=== PATIENT | female | born 1970 | race Caucasian/White ===

== ENCOUNTER → 2024-02-13 16:07 | Outpatient (CLI) | payer OTHER, SELFPAY ==
--- NOTE | ~2024-02-13 | XR_ITS ---
XR chest 2V Ordering provider: DOCTOR UNKNOWN History: 53 years Female with . COUGH X 2 MONTHS, WHEEZING . Comparison: None. FINDINGS: MEDIASTINUM: The cardiac silhouette is not enlarged. LUNGS: No infiltrates, effusions or pneumothorax. OTHER: No free air under the diaphragm. IMPRESSION: No acute cardiopulmonary pathology. Reviewed, dictated and finalized at location A.
== END ==
DX: R05.3 Chronic cough (principal)
CPT/HCPCS: 71046

== ENCOUNTER 2024-07-11 15:32 | Emergency (ER) | payer OTHER, SELFPAY ==
[2024-07-11 15:42] VITALS: BP 134/94; PULSE 65; RESP 19; TEMP 36.9; O2SAT 97
[2024-07-11 15:53] VITALS: BP 134/94; PULSE 65; RESP 19; TEMP 36.9; O2SAT 97
[2024-07-11] MEDS: TETANUS,DIPHTHERIA,AC PERTUSSIS ADULT (0.5 ML) BOOSTRIX IM (16:00)
--- NOTE | 2024-07-11 16:13 | ED.ANIMALBIT ---
HPI - Animal Bite General Chief Complaint: Animal Bite Stated Complaint: Cat Scratch left Thumb Time Seen by Provider: 07/11/24 15:55 Source: patient Mode of arrival: ambulatory Limitations: no limitations History of Present Illness HPI narrative: 53 yo F presents with c/o cat scartch to L hand. Pt states cats nail punctured into her skin. bleeding controlled. Injury happened this AM. 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 Swelling and redness worse this afternoon. [place] that pt should be seen for abx. ROM and NV intact. All systems reviewed and negative except as noted above. Related Data Home Medications Medication Instructions Recorded Confirmed fluoxetine 40 mg capsule 40 mg PO DAILY 07/11/24 07/11/24 levothyroxine 112 mcg tablet 112 mcg PO DAILY 07/11/24 07/11/24 rosuvastatin 5 mg tablet 5 mg PO DAILY 07/11/24 07/11/24 Allergies Allergy/AdvReac Type Severity Reaction Status Date / Time Penicillins Allergy Intermediate rash Verified 07/11/24 15:42 prochlorperazine Allergy Intermediate eyes roll Verified 07/11/24 15:42 back in her head Review of Systems Review of Systems: CONSTITUTIONAL: Denies fever, chills, or sweats. EYES: Denies visual changes, redness, or discharge. ENT: Denies rhinorrhea, congestion, sore throat, or otalgia. CARDIOVASCULAR: Denies chest pain, palpitations, or edema. RESPIRATORY: Denies cough or dyspnea. GASTROINTESTINAL: Denies abdominal pain, nausea, vomiting, or diarrhea. GENITOURINARY: Denies dysuria or hematuria. SKIN: reports cat scratch wound to L hand MUSCULOSKELETAL: Denies back pain, joint pain, or myalgia. NEUROLOGIC: Denies headache, numbness, or weakness. PSYCHIATRIC: Denies anxiety or depression. All other systems reviewed are negative, except as documented in HPI. PMFSH Comments At time of signature, agree with nursing past medical, surgical, social and family history. There is no relevant family history pertinent to the presenting complaint. Exam Narrative: GENERAL: This is a well-nourished, well-developed patient, in no apparent distress. HEAD: normocephalic, atraumatic. EYES: PERRL. Sclera clear/white. Vision is grossly intact. EARS: External ears normal NOSE: External nose normal NECK: Neck supple, non-tender without lymphadenopathy, masses or thyromegaly. CARDIOVASCULAR: Regular rate and rhythm without murmurs, gallops, or rubs. RESPIRATORY: Clear to auscultation. Breath sounds equal bilaterally. No wheezes, rales, or rhonchi. SKIN: warm, Dry, intact with no suspicious lesions or rash, good texture and turgor. puncture wound to L thenar eminence with erythema, swelling. tender on palpation. no drainage. NEURO: awake, alert, and oriented to person, place and time. There were no obvious focal neurologic abnormalities. EXTREMITIES: No joint tenderness, effusion, or edema noted. Course Course Level of Care: Express Care Visit Vital Signs Vital signs: Vital Signs Temperature 36.9 C 07/11/24 15:42 Pulse Rate 65 07/11/24 15:42 Respiratory Rate 19 07/11/24 15:42 Blood Pressure 134/94 H 07/11/24 15:42 Pulse Oximetry 97 07/11/24 15:42 Oxygen Delivery Room Air 07/11/24 15:42 Temperature 36.9 C 07/11/24 15:53 Pulse Rate 65 07/11/24 15:53 Respiratory Rate 19 07/11/24 15:53 Blood Pressure 134/94 H 07/11/24 15:53 Pulse Oximetry 97 07/11/24 15:53 Oxygen Delivery Room Air 07/11/24 15:53 reviewed MDM - Animal Bite MDM Narrative Medical decision making narrative: Patient is aware of diagnosis, understands and agrees to treatment plan. Anticipatory guidance given. Patient agrees to follow-up as directed and is aware of reasons to seek care at the emergency department. Portions of this record may have been created with voice recognition software pt well appearing. nontoxic. cat scratch to L hand. ROM and NV intact. Will treat for cat scratch fever. Differential Diagnosis Differential diagnosis: Likely other (animal scratch, possible cat scratch fever) Discharge Plan Discharge Clinical Impression: Cat scratch of left hand Patient Disposition: Home, Self-Care Condition: Stable Instructions: Antibiotic Form, Cat Scratch Disease (ED) Additional Instructions: Take antibiotics as prescribed until gone. Take ibuprofen or Tylenol every 6-8 hours as needed for pain. Keep clean and dry. Wash with mild soap and water. If you have redness, warmth, swelling, increased your pain see your primary care physician. Prescriptions: New clindamycin HCl 300 mg capsule 300 mg PO Q8H 10 Days Qty: 30 0RF doxycycline hyclate 100 mg tablet 100 mg PO BID 7 Days Qty: 14 0RF mupirocin 2 % ointment 1 applic topical BID 7 Days Qty: 15 0RF No Action fluoxetine 40 mg capsule 40 mg PO DAILY levothyroxine 112 mcg Tablet 112 mcg PO DAILY rosuvastatin 5 mg tablet 5 mg PO DAILY Follow-up/Referrals: UNKNOWN,DOCTOR [Primary Care Provider] - Time of Disposition: 16:09
== END 2024-07-11 16:15 | disposition home or self-care (01) ==
PROVIDERS: Emergency Provider Nurse Practitioner Family
DX: S60.312A Abrasion of left thumb, initial encounter (principal); Z79.899 Other long term (current) drug therapy; Z23 Encounter for immunization; W55.03XA Scratched by cat, initial encounter
CPT/HCPCS: 90471; 90715; 99213; G0463